=== PATIENT | male | born 1995 | race Caucasian/White ===

== ENCOUNTER → 2020-07-13 13:43 | Outpatient (CLI) | payer OTHER, SELFPAY ==
--- NOTE | ~2020-07-13 | US_ITS ---
EXAMINATION: US soft tissue head and neck EXAM DATE: 07/13/2020 13:57 INDICATION: R22.0 - Localized swelling, mass and lump, head. TECHNIQUE: Multiple grayscale and Doppler images of the symptomatic right posterior reticular region were obtained (by a technologist who performed the scan) and subsequently reviewed. There is no prio r study for comparison. FINDINGS: Scanning in the palpable abnormality posterior to the right ear demonstrates a focal nodule of echoge nicity which does have vascularity, region measuring 1.1 x 0.4 x 0.8 cm. This most likely a reactive lymph node. IMPRESSION: Nonspecific soft tissue nodule most likely reactive lymph node but if this persists or en larges then recommend neck CT with contrast. Reviewed, dictated and finalized at location A. APEUTIC SPECIALIST IMPRESSION: Nonspecific soft tissue nodule most likely reactive lymph node but if this persists or enlarges then recommend neck CT with contrast.
== END ==
PROVIDERS: PCP Family Medicine; Visit Provider Nurse Practitioner Family
DX: R22.0 Localized swelling, mass and lump, head (principal)
CPT/HCPCS: 76536

== ENCOUNTER → 2021-07-16 04:08 | Outpatient (CLI) | payer OTHER, SELFPAY ==
[2021-07-16 20:23] LABS: SARS-CoV-2 RNA PCR Negative
== END ==
PROVIDERS: PCP Physician Assistant Medical; Visit Provider Physician Assistant Medical
DX: R68.89 Other general symptoms and signs (principal); Z20.822 Contact with and (suspected) exposure to COVID-19
CPT/HCPCS: C9803; U0003; U0005

== ENCOUNTER → 2021-07-23 08:48 | Outpatient (CLI) | payer OTHER, MEDICAID, SELFPAY ==
--- NOTE | ~2021-07-23 | CT_ITS ---
EXAMINATION: CT soft tissue neck w con DATE: 07/23/2021 09:15 INDICATION: Right postauricular mass. TECHNIQUE: Computed tomography (CT) of the neck was performed with 75 mL Omnipaque-350 intravenous co ntrast. Automated exposure control and iterative reconstruction technique were employed. The dose-brittany gth product was 422.91 mGy-cm. COMPARISON: Ultrasound 07/13/20 FINDINGS: There are no pathologically enlarged lymph nodes. There is no abnormal mass. There is no vi sible plaque in the proximal internal carotid arteries. There is mucosal thickening in the paranasal sinuses. The mastoid air cells are normal. There is mild cervical spondylosis. IMPRESSION: 1. No abnormal mass or lymphadenopathy. Reviewed, dictated and finalized at location A. ER ROD MILL
== END ==
PROVIDERS: PCP Family Medicine; Visit Provider Nurse Practitioner Family
DX: R22.0 Localized swelling, mass and lump, head (principal)
CPT/HCPCS: 70491; Q9967

== ENCOUNTER → 2021-08-10 14:56 | Outpatient (CLI) | payer OTHER, MEDICAID, SELFPAY ==
--- NOTE | ~2021-08-10 | XR_ITS ---
EXAMINATION: XR chest 2V DATE: 08/10/2021 15:15 INDICATION: Chronic cough. TECHNIQUE: Frontal and lateral views of the chest were obtained. COMPARISON: Chest 2 views 05/10/2016 FINDINGS: The chest demonstrates clear lungs without pneumonia, pleural effusion, or pneumothorax. Th e heart size is normal. IMPRESSION: 1. No acute cardiopulmonary disease. Reviewed, dictated and finalized at location E. CAL ASSISTANT SUPERVISOR
== END ==
PROVIDERS: PCP Family Medicine; Visit Provider Nurse Practitioner Family
DX: R05.3 Chronic cough (principal)
CPT/HCPCS: 71046

== ENCOUNTER 2022-09-21 15:38 | Emergency (ER) | payer OTHER, MEDICAID, SELFPAY ==
[2022-09-21 15:45] VITALS: BP 118/82; PULSE 80; RESP 20; TEMP 36.3; O2SAT 100
--- NOTE | 2022-09-21 16:21 | ED.EAR ---
HPI - Ear Problem General Chief complaint: Ear Stated complaint: EARACHE Time Seen by Provider: 09/21/22 16:18 Source: patient Mode of arrival: ambulatory Limitations: no limitations History of Present Illness HPI Narrative: 27-year-old male with autism presented with mother for complaint of right ear pain since last night. He states pain is mild. Denies associated sinus congestion, sore throat, tinnitus, dizziness, fevers or chills. Mother is answering most questions because patient becomes anxious. He took Aleve for pain yesterday. MD Complaint: ear pain Related Data Home Medications Medication Instructions Recorded Confirmed finasteride 1 mg tablet 1 mg PO DAILY 06/06/21 09/21/22 tacrolimus 0.03 % topical ointment 1 applic topical BID 06/06/21 09/21/22 hydrocortisone 2.5 % topical cream 1 applic topical BID 01/31/22 09/21/22 minocycline 50 mg capsule 50 mg PO BID 01/31/22 09/21/22 Allergies Allergy/AdvReac Type Severity Reaction Status Date / Time No Known Allergies Allergy Verified 09/21/22 16:17 Review of Systems Review of Systems: CONSTITUTIONAL: Denies malaise, chills, or fever. EYES: Denies visual changes, redness, or discharge. ENT: Denies rhinorrhea, congestion, sinus pain, and sore throat. Reports ear pain CARDIOVASCULAR: Denies chest pain, palpitations, or edema. RESPIRATORY: Denies cough or dyspnea. GASTROINTESTINAL: Denies abdominal pain, nausea, vomiting, diarrhea SKIN: Denies rash or itching. MUSCULOSKELETAL: Denies myalgia. NEUROLOGIC: Denies headache. All systems reviewed & are unremarkable except as noted in HPI and below PMFSH Past Medical History Medical History (Updated 09/21/22 @ 16:32 by Bia Velasco APRN) Anxiety Autism BMI 28.0-28.9,adult BMI 29.0-29.9,adult Family History Family History Father Hypertension Hyperlipemia Mother Diabetes mellitus Hypertension Thyroid activity decreased Sibling No problems noted. Other Family history of lung cancer Social History Social History Smoking status: Never smoker Second hand tobacco smoke exposure: No Alcohol intake: never Substance use: never Substance use type: does not use Living arrangements: with family Occupation/Education: other Gender identity (if verbalized by the patient): Male Comments At time of signature, agree with nursing past medical, surgical, social and family history. There is no relevant family history pertinent to the presenting complaint Exam Narrative: GENERAL: Well-appearing EYES: PERRLA, conjunctivae clear ENT: Nares clear. Mucous membranes moist. Left tM pearly fernandez with dull light reflex; right TM unable to visualize due to excess cerumen. No tragal tenderness. NECK: Supple. No lymphadenopathy CHEST: Clear to auscultation, breath sounds equal. No wheezing, rhonchi, rales, or stridor. No respiratory distress, speaks in full sentences. HEART: Regular rate and rhythm. No murmur heard. SKIN: Warm, dry, no rash. NEURO: Alert and oriented x3. PSYCH: Flat affect, avoids eye contact Course Course Emergency Course: Patient is aware of diagnosis, understands and agrees to treatment plan. Anticipatory guidance given. Patient agrees to follow-up as directed and is aware of reasons to seek care at the emergency department. Portions of this record may have been created with voice recognition software Level of Care: Express Care Visit Vital Signs Vital signs: Vital Signs Temperature 97.3 F L 09/21/22 15:45 Pulse Rate 80 09/21/22 15:45 Respiratory Rate 20 09/21/22 15:45 Blood Pressure 118/82 09/21/22 15:45 Pulse Oximetry 100 09/21/22 15:45 Temperature 97.3 F L 09/21/22 15:45 Pulse Rate 80 09/21/22 15:45 Respiratory Rate 20 09/21/22 15:45 Blood Pressure 118/82 09/21/22 15:45 Pulse Oximetry 100 09/21/22 15:45 Re
== END 2022-09-21 16:31 | disposition home or self-care (01) ==
PROVIDERS: Emergency Provider Nurse Practitioner Family; PCP Family Medicine
DX: H61.21 Impacted cerumen, right ear (principal); F84.0 Autistic disorder
CPT/HCPCS: 69210; 99212; G0463

== ENCOUNTER 2025-05-17 13:15 | Emergency (ER) | payer OTHER, MEDICAID, SELFPAY ==
[2025-05-17 13:32] VITALS: BP 125/84; PULSE 101; RESP 20; TEMP 36.3; O2SAT 100
--- NOTE | 2025-05-17 13:39 | ED.URI ---
HPI - URI/Sore Throat General Chief Complaint: Upper Respiratory Infection Stated Complaint: SINUS CONGESTION/FEVER Time Seen by Provider: 05/17/25 13:37 Source: patient and RN notes reviewed Mode of arrival: ambulatory Limitations: no limitations History of Present Illness HPI Narrative: 30-year-old male presents with concern for sinus congestion, runny nose, cough since Friday. Reports he had a fever of 101 over the weekend. Mother reports she has been giving him Mucinex DM, he takes twice daily MD elicited complaint: cough and nasal congestion Related Data Home Medications ?Medication ?Instructions ?Recorded ?Confirmed ?Last Taken ?Type finasteride 1 mg tablet 1 mg PO DAILY 06/06/21 05/10/25 Unknown History tacrolimus 0.03 % topical ointment 1 applic topical BID 06/06/21 05/10/25 Unknown History hydrocortisone 2.5 % topical cream 1 applic topical BID 01/31/22 05/10/25 Unknown History benzoyl peroxide 5 % topical gel 1 applic topical DAILY 03/07/23 05/10/25 Unknown History erythromycin with ethanol 2 % 1 applic topical BID 03/07/23 05/10/25 Unknown History topical gel tretinoin 0.05 % topical gel 1 applic topical QHS 03/07/23 05/10/25 Unknown History Allergies Allergy/AdvReac Type Severity Reaction Status Date / Time No Known Allergies Allergy Verified 05/17/25 13:32 Review of Systems Review of Systems: CONSTITUTIONAL: Denies malaise, chills, sweats, or fever. EYES: Denies visual changes, redness, or discharge. ENT: Reports rhinorrhea, congestion. Denies sinus pain, otalgia and sore throat. CARDIOVASCULAR: Denies chest pain, palpitations, or edema. RESPIRATORY: Reports cough. Denies dyspnea. GASTROINTESTINAL: Denies abdominal pain, nausea, vomiting, diarrhea SKIN: Denies rash or itching. MUSCULOSKELETAL: Denies myalgia. NEUROLOGIC: Denies headache. All systems reviewed & are unremarkable except as noted in HPI and below PMFSH Past Medical History Medical History BMI 30.0-30.9,adult Anxiety Autism Family History Family History Father Hypertension Hyperlipemia Mother Diabetes mellitus Hypertension Thyroid activity decreased Sibling No problems noted. Other Family history of lung cancer Social History Social History Second hand tobacco smoke exposure: No Alcohol intake: never Substance use: never Substance use type: does not use Do You Feel Safe in your Home?: Yes Lack of Transportation: No Lack of Food: Never True Current Housing: I Have Housing Concerned About Future Housing: No Difficulty Paying Gas/Electric Bills: No Difficulty Paying for Meds: No Currently Unemployed: No Education: High School Diploma/GED Difficulty w/ Childcare or Family Care: No Living arrangements: with family Occupation/Education: other Gender identity (if verbalized by the patient): Male Comments At time of signature, agree with nursing past medical, surgical, social and family history. There is no relevant family history pertinent to the presenting complaint Exam Narrative: GENERAL: Well-appearing, well-nourished, and in no acute distress. HEAD: Normocephalic EYES: PERRLA, conjunctivae clear ENT: Nares clear, turbinates edematous and erythematous, clear discharge. Mucous membranes moist. TM pearly fernandez with dull light reflex bilaterally; no tragal tenderness. Oropharynx not erythematous without lesions. Tonsils not enlarged and without exudate, no drooling, no hoarseness, no trismus, uvula midline. NECK: Supple. No lymphadenopathy CHEST: Clear to auscultation, breath sounds equal. No wheezing, rhonchi, rales, or stridor. No respiratory distress, speaks in full sentences. HEART: Regular rate and rhythm. No murmur heard. SKIN: Warm, dry, no rash. NEURO: Alert and oriented x3. PSYCH: Normal mood and affect Course Course Emergency Course: Patient is aware of diagnosis, understands and agrees to treatment plan. Anticipatory guidance given. Patient agrees to follow-up as directed and is aware of reasons to seek care at the emergency department. Portions of this record may have been created with voice recognition software Level of Care: Express Care Visit Vital Signs Vital signs: Vital Signs Temperature 97.3 F L 05/17/25 13:32 Pulse Rate 101 H 05/17/25 13:32 Respiratory Rate 20 05/17/25 13:32 Blood Pressure 125/84 05/17/25 13:32 Pulse Oximetry 100 05/17/25 13:32 Oxygen Delivery Room Air 05/17/25 13:32 Temperature 97.3 F L 05/17/25 13:32 Pulse Rate 101 H 05/17/25 13:32 Respiratory Rate 20 05/17/25 13:32 Blood Pressure 125/84 05/17/25 13:32 Pulse Oximetry 100 05/17/25 13:32 Oxygen Delivery Room Air 05/17/25 13:32 Reviewed. MDM - URI/Sore Throat MDM Narrative Medical decision making narrative: Differential diagnosis considered: Fitzpatrick virus, strep pharyngitis, allergic rhinitis, upper respiratory tract infection, sinusitis, rhinosinusitis, nasopharyngitis. viral pharyngitis, otitis media, otitis externa, pneumonia, bronchitis, viral cough syndrome, viral syndrome, and influenza. Exam findings show no acute concerns or changes; patient is non-toxic appearing and is in no distress. Patient is appropriate for outpatient treatment and follow-up. Lab Data Attestation: I reviewed the patient's lab results. Critical Care Time Critical Care Time Critical Care Time: No Discharge Plan Discharge Clinical Impression: Upper respiratory infection Patient Disposition: Home Condition: Stable Instructions: Upper Respiratory Infection (ED) Additional Instructions: Your rapid strep swab was negative today at [facility]. A throat culture will be sent to the laboratory for further testing. If the test is positive, you will receive a phone call within 48 hours and an appropriate antibiotic will be initiated at that time. Your symptoms are likely due to a viral illness, which is not treated with antibiotics. Viral symptoms can be present for up to a few weeks. -Alternate Tylenol and Motrin per package directions for fever or pain. -Eat and drink things that are easy to swallow, like tea or soup, or popsicles to suck on. -Oral rinses such as: Salt water gargles and/or may use topical anesthetic (eg. Chloraseptic spray) or lozenges to relieve dryness or throat pain). -Frequent hand washing or hand research quality assurance analyst is one of the best ways to prevent spread of infection. -Follow up with primary care provider in 2-3 days if condition is not improving; or seek ER visit if you have trouble breathing, cannot drink enough fluids, have muffled voice, difficulty opening your mouth, or severe swelling. Patient Language: Portuguese Prescriptions: New dextromethorphan-guaifenesin [Mucinex DM] 60-1,200 mg tablet extended release 12 hr 1 tablet PO Q12H Qty: 12 0RF prednisone 20 mg tablet 20 mg PO DAILY 5 Days Qty: 5 0RF No Action finasteride 1 mg tablet 1 mg PO DAILY tacrolimus 0.03 % ointment 1 applic topical BID erythromycin with ethanol 2 % gel 1 applic topical BID tretinoin 0.05 % gel 1 applic topical QHS benzoyl peroxide 5 % gel 1 applic topical DAILY pantoprazole 20 mg tablet,delayed release (DR/EC) 20 mg PO BID Qty: 180 3RF valacyclovir [Valtrex] 1 gram tablet 2,000 mg PO Q12H Qty: 4 2RF hydrocortisone 2.5 % cream 1 applic topical BID (DME) InspiraChamber Spacer See Rx Instructions .Route Qty: 1 0RF Rx Instructions: As directed with use of inhaler Follow-up/Referrals: Jim Kaur MD [Primary Care Provider, Family Practice] Time of Disposition: 14:14
[2025-05-17 14:06] LABS: EDSTREPNEGPOS1 Negative (Negative)
== END 2025-05-17 14:31 | disposition home or self-care (01) ==
PROVIDERS: Emergency Provider Nurse Practitioner; PCP Family Medicine
DX: J06.9 Acute upper respiratory infection, unspecified (principal); F84.0 Autistic disorder
CPT/HCPCS: 87081; 87880; 99213; G0463

== ENCOUNTER 2025-05-28 10:09 | Outpatient (CLI) | payer OTHER, MEDICAID, SELFPAY ==
--- OUTSIDE RECORDS SUMMARY | 2015-05-15 08:29 | XMS_ITS | Continuity of Care Document ---
Author Organization [facility] Address [address] [place] [address] Phone Care Team Providers Care Healthcare Liaison Name Role Phone Iftikhar Bianchi DO Unavailable Unavailable Allergies, Adverse Reactions, Alerts Substance Reaction Status Criticality No Known Allergies Active No Inform ation Medications Medication Instructions Dosage Effective Dates (start - stop) Status Comments Levaquin 500 mg tablet take 1 tablet by oral route every 24 hours - Active Sudafed 12 Hour 120 mg tablet,extended release take 1 tablet by oral route every 12 hours 120 MG - Active Tessalon Perles 100 mg capsule take 2 Capsule by ORAL route 3 times every day 200 MG - Active Lexapro 10 mg tablet take 1 tablet by or al route every day 10 MG - Active Flonase 50 mcg/actuation nasal spray,suspension spray 1 spray by intranasal route every day in each nostril - Active Claritin 10 mg tablet take 1 tablet by o ral route every day 10 MG - Active Procedures Procedure Date OFFICE/OUTPATIENT VISIT, EST PREV VISIT, EST, AGE 12-17 OFFICE/OUTPATIENT VISIT, EST OFFICE/OUTPATIENT VISIT, EST OFFICE/OUTPATIENT VISIT, NEW Advance Directives Directive Yes / No Effective Date File Name No Information Encounters Encounter Description Practice Location Reason(s) For Visit Diagnoses Date Provider Providers Copied on Encounter [facility], [address] [place], [address], [place] tel:[phone] *[facility] No Information 5 Tash Buitrago. [address] [facility] [place], [address], [place]. tel:[phone] OFFICE/OUTPA TIENT VISIT, EST [facility], [address] [place], [address], [place] tel:[phone] *[facility] ObesityAutist ic disorder, current or active stateSocial anxiety disorder 5 Anitha Shepherd. [address] [place], [address], [place]. tel:[phone] PREV VISIT, EST, AGE 12-17 [facility], [address] [place], [address], [place] tel:[phone] *[facility] dad wants to have adult guardianship (chief complaint)all ergies (chief complaint)Wel l Child (chief complaint) [facility] EXAMOverweigh tAllergic rhinitisSever e mental disorder of children with symptoms of the inability to communicate and interact with other people, residual state (severity of symptoms have decreased) 5 Tash Buitrago. [address] [facility] [place], [address], [place]. tel:[phone] OFFICE/OUTPA TIENT VISIT, EST [facility], [address] [place], [address], [place] tel:[phone] [facility] Autistic disorder, current or active stateSocial anxiety disorder 4 Anitha Shepherd. [address] [place], [address], [place]. tel:[phone] [facility], [address] [place], [address], [place] tel:[phone] *[facility] No Information 4 Tash Buitrago. [address] [facility] [place], [address], [place]. tel:[phone] OFFICE/OUTPA TIENT VISIT, EST [facility], [address] [place], [address], [place] tel:[phone] [facility] Autistic disorder, current or active stateSocial anxiety disorder Sep- [address] Anitha Joao. [address] [place], [address], [place]. tel:[phone] OFFICE/OUTPA TIENT VISIT, [facility], [address] [facility] [place], [address], [place] tel:[phone] *[facility] right fibula fracture/no surgery required (chief complaint) Unspecified fracture of ankle, closedOther specified pervasive developmental disorders, current or active state 3 Tash Paterey. [address] [facility] [place], [address], [place]. tel:[phone] Family History Family Member Type Diagnosis Age At Onset Mother Problem (finding) diabetes mellitus type 2 Brother Problem (finding) Alive and well Father Problem (finding) hypertension Mother Problem (finding) Alive and well Immunizations Vaccine Date Status Comments Influenza, seasonal, injecta ble (3 yrs or older) administered [facility] Payer name Insurance type Covered constitution party ID Authoriza tion(s) No Information Social History Type Description Quantity Date Captured Comments Alcohol Use Details Unknown Caffeine Use Details Unknown Tobacco Use Status Never smoked tobacco 2014 Smoking Status Never smoker Non-Smoking Tobacco Use Details : No Details Available : No Details Available Sex Male Chief Complaint And Reason For Visit No Information Reason For Referral Reason For Referral No Information Plan Of Treatment Date Type Action Status Goal Dietary management education , guidance, and counseling completed Goal Dietary management education , guidance, and counseling completed Referral Referred To: Dr. Candelario Dugan Ordered: Referral: Dr. Candelario Dugan. Evaluate and treat. Appointment date/timeframe: 12/02/2012 ordered Referral Referred To: Dr. Rad Oliveira Ordered: Referral: Dr. Rad Oliveira. Evaluate and treat. 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 Relat ed to Allergic rhinitis Dietary management e ducation, guidance, and counseling Related to Overweight Assessments Type Assessment Date No Information Mental Status Date Cognitive Assessment Orientation - [place] ed to time, place, person, situation. Patient Care Teams Name Effective Dates (start - stop) Status Members No Information
--- NOTE | ~2025-05-28 | US_ITS ---
US abdomen complete EXAMINATION: US Abdomen Complete INDICATION: Reflux PROCEDURE: Realtime High Resolution abdomen ultrasound. COMPARISON: No prior studies for comparison FINDINGS: Gallbladder within normal limits. No gallstones, pericholecystic fluid, gallbladder wall thickening or biliary dilatation. Common bile duct measures 5.5 mm. Liver echotexture is increased, consistent with fatty infiltration.. Pancreas within normal limits. Pancreatic tail is obscured by bowel gas. Spleen is unremarkeable. Renal echotexture is within normal limits bilaterally without hydronephrosis, contour deforming mass or renal stone. Right kidney measures 10 cm. Left kidney measures 9 cm. Visualized aspects of the aorta and IVC are within normal limits.Portal vein is patent..Noo sonographic Reyes's sign indicated by the technologist. IMPRESSION: 1:Fatty infiltration of the liver.. Reviewed, dictated and finalized at location O. [facility]
--- OUTSIDE RECORDS SUMMARY | 2025-05-28 10:13 | XMS_ITS | Data Portability ---
Author Organization [facility] [employer] [facility], [facility] Address [id number] [place] [address] [address] [place] [address] Assessment No assessment recorded. Plan of Treatment Reminders Order Date Submit Date Provider Last Modified By Organization Details Last Modified Time Details Appointments None recorded. Lab None recorded. Referral None recorded. Procedures None recorded. Surgeries None recorded. Imaging None recorded. Medication Orders Augmentin 875 mg-125 mg tablet 2018 [id number], [facility] [address], [id number], 9 12:45:30 loratadine 10 mg tablet [id number], [address] [place] [address], [id number], 9 12:45:31 Patient TargetsNo targets recorded. Patient Instructions Encounter Date Encounter Id Patient Instructions Last Modified By Organization Details Last Modified Time 03/01/2019 [id number] Discharge Instructions Not available 03/01/2019 12:45:24 Acute Sinusitis: Care Instructions Not available 03/01/2019 12:45:24 Reason for Referral None Reported. Problems Name Problem SNOMED Code Status Onset Date Resolution Date Notes Provider Name and Address Organization Details Recorded Time Sinusitis 32130695 Active Paula thomas [facility] 9 12:33:45 Pain in throat 355004493 Active Paula thomas [facility] 9 12:33:56 Problem Notes None recorded. Medical Equipment None Reported. Allergies No known drug allergies Medications Name Sig Start Date Stop Date Status Note LastModified by Organization Details LastModified Time Augmentin 875 mg-125 mg tablet Take 1 tablet every 12 hours by oral route for 10 days. 2018 active Not Available Not Available Not Avai lable triamcinolone acetonide 0.1 % topical cream active Not Available Not Availabl e Not Available loratadine 10 mg tablet Take 1 tablet every day by oral route in the morning. 2018 active Not Available Not Available Not Avai lable escitalopram 10 mg tablet active Not Available Not Available No t Available Vitals Date Recorded Heart rate Body temperature Body weight Systolic And Diastolic Provider Name and Address Organization Details Last Updated DateTime 03/01/2019 97 /min 98.4 [degF] 66473.4 g 126/78 mm[Hg] [facility] [place]/01/[place] 12:32:54 Social History Question Answer Notes LastModified by Organizat ion Details LastModified Time Tobacco Smoking Status [place] [facility] [place] 12:34:05 Alcohol Use None [email or web address] Information n ot available 03/01/2019 What Was The Date Of Your Most Recent Tobacco Screening? 03/01/2019 Information n ot available 03/02/2019 Are You Passively Exposed To Smoke? [email or web address] Information not available 03/01/2019 Sex: Unknown Functional Status None recorded. Mental Status None recorded. Family History Nothing Reported. Medical History No medical history recorded. Past Encounters Encounter ID Performer Location Encounter Start Date Encounter Closed Date Diagnosis/Indication Diagnosis SNOMED-CT Code Diagnosis ICD10 Code Diagnosis IMO Codes Diagnosis Note [id number] THAIS Patel [facility] [address] [facility] [address] [place] [address] 03/01/2019 12:27:46 03/01/2019 12:53:20 Acute sinusitis 80422022 J01.90 Health Concerns Section Related Observation LastModified by Organization Detai ls LastModified Time None Recorded Concern Status LastModified by Organization Details LastModified Time None Recorded Advance Directives Directive None Recorded Payers Insurance Date Sequence Insurance Name Policy Number Policy Tanner Covered Member ID Tanner Member ID Guarantor Name 03/01/2019 1 [facility] [id number] Padmini Hargrove [id number] Emilio Hargrove Notes Date Note Type Note Provider Name and Address Organization Details Recorded Time 019 text/ht ml Sinusitis UCReported by PatientHPIFor quality, patient reportsworseningandcongestedbut reportsminimal discomfort. For associated symptoms, patient reportsnasal discharge from both nostrils,headache forehead,facial pain bilaterally,sinus pain forehead,sore throat,thick phlegm in throat,constantly clearing the throat,nasal passage blockage bilaterally,ear fullness, andcoughbut reportsno fever/chillsandno difficulty breathing. For location, patient reportsmaxillaryandfrontal. For onset/ duration, patient reportsfew day(s) ago. For timing, patient reportsepisodic,wax/wane, andworse in the morning. For severity, patient reportsmoderate. JASKARAN Rodgers - [facility], [facility] 03/01/2019 12:46:57
== END 2025-05-28 10:10 | disposition home or self-care (01) ==
PROVIDERS: PCP Family Medicine; Visit Provider Physician Assistant Medical
DX: K21.9 Gastro-esophageal reflux disease without esophagitis (principal); R11.14 Bilious vomiting; K76.0 Fatty (change of) liver, not elsewhere classified
CPT/HCPCS: 76700